=== PATIENT | male | born 1975 | race Caucasian/White ===

== ENCOUNTER 2021-08-09 03:30 | Emergency (ER) | payer BC, OTHER ==
[2021-08-09 03:38] VITALS: BP 154/93; PULSE 92; RESP 18; TEMP 98
--- NOTE | 2021-08-09 03:56 | XR ---
EXAMINATION TYPE: XR shoulder complete RT DATE OF EXAM: 08/09/2021 COMPARISON: NONE HISTORY: Shoulder pain. Frozen shoulder. TECHNIQUE: 3 views FINDINGS: There is 1 cm calcification at the greater tuberosity. I see no fracture nor dislocation. A C joint is intact. Scapula is intact. IMPRESSION: Calcific tendinitis. No fracture.
--- NOTE | 2021-08-09 04:05 | ED ---
Extremity Problem HPI - General Chief complaint: Extremity Problem,Nontraumatic Stated complaint: Shoulder Pain Time Seen by Provider: 08/09/21 03:41 Source: patient Mode of arrival: ambulatory Limitations: no limitations - History of Present Illness MD Complaint: joint pain Onset/Timin -: week(s) Location: right, upper extremity Quality: aching Consistency: constant Improves with: immobilization Worsens with: other (Movement) Associated Symptoms: denies other symptoms - Related Data Previous Rx's Medication Instructions Recorded Ibuprofen 800 mg PO TID #20 tablet 08/09/21 Allergies Allergy/AdvReac Type Severity Reaction Status Date / Time No Known Allergies Allergy Verified 08/09/21 03:34 Review of Systems ROS Statement: Those systems with pertinent positive or pertinent negative responses have been documented in the HPI. ROS Other: All systems not noted in ROS Statement are negative. Constitutional: Denies: fever, chills Respiratory: Denies: cough, dyspnea Cardiovascular: Denies: chest pain, palpitations Gastrointestinal: Denies: abdominal pain Musculoskeletal: Reports: arthralgia. Denies: back pain Skin: Denies: rash Neurological: Denies: headache, weakness, numbness, paresthesias Past Medical History Past Medical History: Asthma, Cancer, Hypertension History of Any Multi-Drug Resistant Organisms: None Reported Past Surgical History: Hernia Repair Past Psychological History: No Psychological Hx Reported Smoking Status: Never smoker Past Alcohol Use History: Occasional Past Drug Use History: None Reported General Exam Limitations: no limitations General appearance: alert, in no apparent distress Eye exam: Present: normal appearance Neck exam: Present: normal inspection, full ROM. Absent: tenderness Respiratory exam: Present: normal lung sounds bilaterally. Absent: respiratory distress, wheezes, rales, rhonchi, stridor Cardiovascular Exam: Present: regular rate, normal rhythm, normal heart sounds. Absent: systolic murmur, diastolic murmur, rubs, gallop Right Shoulder Exam: Present: normal inspection, tenderness. Absent: full ROM, swelling, abrasion, laceration, ecchymosis Upper Arm exam: Present: normal inspection, full ROM. Absent: tenderness, swelling Elbow exam: Present: normal inspection, full ROM. Absent: tenderness, swelling Forearm Wrist exam: Present: normal inspection, full ROM. Absent: tenderness, swelling Hand Wrist exam: Present: normal inspection, full ROM. Absent: tenderness, swelling Neuro motor exam: Present: wrist extension intact, thumb opposition intact, thumb IP flexion intact, thumb adduction intact, fingers 2-5 abduction intact Neurosensory exam: Present: 2-point discrimination, radial nerve intact, ulnar nerve intact, median nerve intact Vascular: Present: normal capillary refill. Absent: vascular compromise, pulse deficit radial art, pulse deficit ulnar art Back exam: Absent: paraspinal tenderness, vertebral tenderness Neurological exam: Present: alert. Absent: motor sensory deficit Skin exam: Present: warm, dry, intact, normal color. Absent: rash Course Vital Signs 08/09/21 03:35 Temperature 98 F Pulse Rate 92 Respiratory 18 Rate Blood Pressure 154/93 O2 Sat by Pulse 96 Oximetry Disposition Clinical Impression: Shoulder pain Disposition: HOME SELF-CARE Condition: Good Instructions (If sedation given, give patient instructions): Rotator Cuff Tendinitis (ED) Prescriptions: Ibuprofen 800 mg PO TID #20 tablet Is patient prescribed a controlled substance at d/c from ED?: No Referrals: Napoleon Rocha MD [Primary Care Provider] - 1-2 days
[2021-08-09] MEDS ORDERED: KETOROLAC 15 MG/ML 1 ML VIAL IM STA (04:14)
== END 2021-08-09 04:31 | disposition home or self-care (01) ==
LOC: EC 03:30
DX: M25.511 Pain in right shoulder (principal); I10 Essential (primary) hypertension; J45.909 Unspecified asthma, uncomplicated
CPT/HCPCS: 73030; 99283; J1885